=== PATIENT | female | born 1995 | race African-American/Black ===

== ENCOUNTER 2024-05-19 06:11 | Day surgery (SDC) | payer OTHER ==
[~2024-05-19] VITALS: Ht 170.2 cm; Wt 83.0 kg
[~2024-05-19 06:11] MED LIST: IBUP-1456 PO
[2024-05-19] MEDS ORDERED: ceFAZolin 2 GM/D5W100ml 100 ML IV ONE (06:49)
[2024-05-19] MEDS ORDERED: EPINEPHrine HCL 1 MG/1 ML AMP ONE (07:01)
[2024-05-19] MEDS ORDERED: MIDAZOLAM HCL 2MG/2ML 2ml VIAL (1mg/ml) ONE (07:14)
[2024-05-19] MEDS ORDERED: MEPERIDINE HCL (50 MG/ML) 1 ML VIAL ONE (07:14)
[2024-05-19] MEDS ORDERED: fentaNYL CITRATE 100 MCG/2 ML VL ONE (07:14)
[2024-05-19] MEDS ORDERED: DexAMETHasone SOD PHOS 10MG/1ML VIAL INJ ONE (08:01)
[2024-05-19] MEDS ORDERED: ONDANSETRON HCL 4 MG/2 ML VIAL ONE (08:01)
[2024-05-19] MEDS ORDERED: PROPOFOL 10 MG/ML 20 ML IV ONE (08:01)
[2024-05-19] MEDS: ROPIVACAINE 0.5% (5MG/ML) 20ML AMPULE IJ ONE (08:10)
[2024-05-19] MEDS ORDERED: SUGAMMADEX 200mg/2ml Vial (100MG/ML) IV ONE (08:23)
[2024-05-19] MEDS ORDERED: KETOROLAC TROMETH 30 MG/ML 1ML VIAL ONE (08:31)
[2024-05-19 08:35] VITALS: PULSE 88; RESP 15; O2SAT 100
[2024-05-19] MEDS ORDERED: KETOROLAC TROMETH 30 MG/ML 1ML VIAL IV ONE (08:45)
[2024-05-19] MEDS ORDERED: ONDANSETRON HCL 4 MG/2 ML VIAL IV ONE (08:45)
[2024-05-19] MEDS ORDERED: hydrALAZINE HCL 20 MG/ML VL IV PRN (08:45)
[2024-05-19] MEDS ORDERED: HYDROmorphone HCL 2 MG/ML VL/or syr IV PRN (08:45)
[2024-05-19] MEDS ORDERED: MIDAZOLAM HCL 2MG/2ML 2ml VIAL (1mg/ml) IV PRN (08:45)
[2024-05-19] MEDS ORDERED: MORPHINE SULFATE 4 MG/ML SYR/VIAL IV PRN (08:45)
[2024-05-19] MEDS ORDERED: ePHEDrine SULFATE 50 MG/ML AMP IV PRN (08:45)
[2024-05-19] MEDS: ACETAMINOPHEN IV 1000 MG/100ML (10MG/ML) IV ONE (08:55)
[2024-05-19 09:35] VITALS: BP 126/76; PULSE 68; RESP 12; O2SAT 98
== END 2024-05-19 09:45 | disposition home or self-care (01) ==
LOC: SUR 06:11
PROVIDERS: ATTEND Orthopaedic Surgery
DX: M75.42 Impingement syndrome of left shoulder (principal)
CPT/HCPCS: 29822; 81025; J0171; J1100; J1885; J2175; J2250; J2405; J2704; J2795; J3010; A4565; J0131